=== PATIENT | male | born 1990 | race Caucasian/White ===

== ENCOUNTER → 2018-04-03 | Outpatient (CLI) | payer OTHER ==
[2018-04-03 15:56] LABS: BASO # 0.1 10*3/uL (0.0-0.1); BASO % 1.1 % (0.0-1.0); EOS # 0.2 10*3/uL (0.0-0.4); EOS % 3.1 % (1.0-4.0); HEMOGLOBIN 15.2 g/dl (14.0-18.0); LYMPH # 1.7 10*3/uL (1.3-4.4); LYMPH % 31.4 % (27.0-41.0); MEAN CELL VOLUME 92.9 fl (80.0-94.0); MEAN CORPUSCULAR HGB 30.7 pg (27.0-31.0); MEAN PLATELET VOLUME 9.8 fl (9.6-12.3); MONO # 0.4 10*3/uL (0.1-1.0); MONO % 7.3 % (3.0-9.0); NEUT # 3.1 10*3/uL (2.3-7.9); NEUT % 56.7 % (47.0-73.0); PLATELET COUNT AUTOMATED 234 10*3/uL (130-400); RED BLOOD COUNT 4.95 10*6/uL (4.50-5.90); RED CELL DISTRI WIDTH 12.1 % (0-14.5); WHITE BLOOD COUNT 5.5 10*3/uL (4.8-10.8)
[2018-04-03 16:40] LABS: ALBUMIN 4.4 gm/dl (3.1-4.5); ALKALINE PHOSPHATASE 71 U/L (45-117); BUN 14 mg/dl (7-24); CHLORIDE 103 mmol/L (98-107); CREATININE 0.89 mg/dL (0.70-1.30); POTASSIUM 3.9 mmol/L (3.5-5.1); SGOT/AST 18 IU/L (3-35); SGPT/ALT 29 U/L (12-78); SODIUM 140 mmol/L (136-145); T3 UPTAKE 37 % (31-39); THYROXINE (T4) TOTAL 7.4 ug/dl (4.5-12.1); TOTAL PROTEIN 7.3 gm/dL (6.4-8.2)
[2018-04-03 16:46] LABS: THYROID STIM HORMONE (HS) 0.501 uIU/ml (0.358-4.75)
[2018-04-04 07:04] LABS: LUTEINIZING HORMONE 004283 3.7 mIU/mL (1.7-8.6); PROGESTERONE 004317 0.2 ng/mL (0.0-0.5); PROLACTIN 004465 14.6 ng/mL (4.0-15.2)
== END ==
LOC: LAB 13:56 → US 14:00
PROVIDERS: Nurse Practitioner Family
DX: I83.93 Asymptomatic varicose veins of bilateral lower extremities (principal); N28.89 Other specified disorders of kidney and ureter; R53.83 Other fatigue

== ENCOUNTER 2025-07-19 05:28 | Emergency (ER) | payer BC ==
[~2025-07-19] VITALS: Ht 185.4 cm; Wt 97.5 kg
[2025-07-19] MEDS ORDERED: Amoxicillin/Clavulanate Pota 875 MG TAB PO ONE (05:45)
[2025-07-19] MEDS ORDERED: Tdap Vaccine 0.5 ML SYR (Adult Vaccine) IM ONE (05:45)
[2025-07-19] MEDS ORDERED: AMOX-CLAV 875-1 EACH PO (05:48)
== END 2025-07-19 06:10 | disposition home or self-care (01) ==
LOC: ED 05:28
DX: S61.451A Open bite of right hand, initial encounter (principal); W55.01XA Bitten by cat, initial encounter; Y93.89 Activity, other specified; Y92.89 Other specified places as the place of occurrence of the external cause; Y99.8 Other external cause status

== ENCOUNTER 2025-07-22 22:50 | Emergency (ER) | payer OTHER ==
[~2025-07-22] VITALS: Ht 182.9 cm; Wt 86.2 kg
[~2025-07-22 22:50] MED LIST: AMOX-CLAV 875-1 EACH PO
[2025-07-22] MEDS ORDERED: Rabies Vaccine 1 ML VIAL IM ONE (23:30)
[2025-07-23] MEDS ORDERED: Rabies Immune Globulin 150O UNIT/10 ML IM ONE (08:59)
[2025-07-23] MEDS ORDERED: Rabies Vaccine 1 ML VIAL IM ONE (08:59)
== END 2025-07-23 01:07 | disposition home or self-care (01) ==
LOC: ED 22:50
DX: S61.250D Open bite of right index finger without damage to nail, subsequent encounter (principal); Z23 Encounter for immunization; W55.01XD Bitten by cat, subsequent encounter

== ENCOUNTER 2025-07-25 14:18 | Emergency (ER) | payer OTHER, BC ==
[~2025-07-25] VITALS: Ht 185.4 cm; Wt 97.5 kg
[2025-07-25] MEDS ORDERED: Rabies Vaccine 1 ML VIAL IM ONE (15:15)
== END 2025-07-25 15:16 | disposition home or self-care (01) ==
LOC: ED 14:18
DX: Z23 Encounter for immunization (principal)

== ENCOUNTER 2025-07-29 12:21 | Emergency (ER) | payer OTHER, BC ==
[2025-07-29] MEDS ORDERED: Rabies Vaccine 1 ML VIAL IM ONE ×2 (12:30→12:40)
== END 2025-07-29 12:58 | disposition home or self-care (01) ==
LOC: ED 12:21
DX: S61.250D Open bite of right index finger without damage to nail, subsequent encounter (principal); Z23 Encounter for immunization; Z98.890 Other specified postprocedural states; W55.01XD Bitten by cat, subsequent encounter